=== PATIENT | male | born 1965 | race African-American/Black ===

== ENCOUNTER 2016-09-08 07:44 | Emergency (ER) | payer MEDICAID ==
[~2016-09-08] VITALS: Ht 180.3 cm; Wt 113.5 kg
[2016-09-08] MEDS ORDERED: REMERON (07:55)
[2016-09-08] MEDS ORDERED: IBUP-1510 PO (07:55)
[2016-09-08 09:54] VITALS: BP 148/86
[2016-09-08] MEDS ORDERED: HYDROCODONE/ACETAMINOPHEN 5/325MG TABLET PO ONE (10:00)
== END 2016-09-08 11:08 | disposition home or self-care (01) ==
LOC: ER 07:44
DX: S60.222A Contusion of left hand, initial encounter (principal); S63.502A Unspecified sprain of left wrist, initial encounter; F41.9 Anxiety disorder, unspecified; F32.9 Major depressive disorder, single episode, unspecified; Z79.1 Long term (current) use of non-steroidal anti-inflammatories (NSAID); V89.2XXA Person injured in unspecified motor-vehicle accident, traffic, initial encounter; Y93.89 Activity, other specified; Y92.9 Unspecified place or not applicable; Y99.8 Other external cause status
CPT/HCPCS: 29125; 73110; 73130; 99284

== ENCOUNTER 2017-01-05 07:57 | Emergency (ER) | payer SELFPAY ==
[~2017-01-05] VITALS: Ht 180.3 cm; Wt 112.0 kg
[~2017-01-05 07:57] MED LIST: IBUP-1510 PO; REMERON
[2017-01-05 09:30] VITALS: BP 165/80
== END 2017-01-05 18:12 | disposition home or self-care (01) ==
LOC: ER 08:47
DX: S60.221A Contusion of right hand, initial encounter (principal); F41.9 Anxiety disorder, unspecified; F32.9 Major depressive disorder, single episode, unspecified; W01.0XXA Fall on same level from slipping, tripping and stumbling without subsequent striking against object, initial encounter; Y93.89 Activity, other specified; Y92.018 Other place in single-family (private) house as the place of occurrence of the external cause
CPT/HCPCS: 29125; 73130; 99284